=== PATIENT | male | born 1985 | race Caucasian/White ===

== ENCOUNTER 2023-08-22 18:01 | Emergency (ER) | payer OTHER, SELFPAY ==
[2023-08-22 19:07] VITALS: BP 127/93; PULSE 88; RESP 20; TEMP 37.5; O2SAT 99; BMI 29.0
--- NOTE | 2023-08-22 19:09 | ED_ITS ---
HPI - General Adult General Chief complaint: Abdominal Pain Stated complaint: stomach pain N/ V Time Seen by Provider: 08/22/23 23:26 Source: patient Mode of arrival: ambulatory Limitations: no limitations History of Present Illness HPI narrative: 38-year-old male previously healthy presents to the ER with complaints of upper abdominal burning with multiple episodes of nausea and vomiting in the last 3 days. Patient denies any diarrhea, constipation, urinary symptoms, fevers, chills, chest pain, shortness of breath. Patient reports this happened to him 1 week ago he was seen at [facility]. While he was there he had labs and a CT scan. He was told that he has gastric reflux and he was prescribed a medication which he does not remember the name for. He has been taking that with continued symptoms. Patient denies any black or bloody stools. Patient denies any hematemesis. He is also trying intermittent famotidine and tums Had BM today Related Data Previous Rx's Medication Instructions Recorded omeprazole 40 mg capsule,delayed 40 mg PO DAILY #30 caps 08/23/23 release ondansetron 4 mg disintegrating 4 mg PO Q6H PRN nausea and 08/23/23 tablet vomiting #20 tabs Allergies Allergy/AdvReac Type Severity Reaction Status Date / Time aspirin AdvReac Vomiting Verified 08/22/23 19:06 Review of Systems 2 Review of Systems: Yes all other systems are reviewed and are negative Constitutional: Constitutional: Reports no additional constitutional complaints, Denies body ache(s), Denies chills, Denies fever(s), Denies headache(s) and Denies weakness Eyes: Eyes: Reports no additional eye complaints and Denies change in vision ENT: Reports system reviewed and no additional complaints, except as documented, Denies dizziness, Denies headache(s), Denies nasal congestion, Denies nasal discharge and Denies neck pain Cardiovascular: Cardiovascular: Reports no additional cardiovascular complaints, Denies chest pain, Denies leg edema and Denies dyspnea Respiratory: Respiratory: Reports no additional respiratory complaints, Denies cough and Denies dyspnea Gastrointestinal: Gastrointestinal: Reports no additional gastrointestinal complaints, Reports abdominal pain, Denies melena, Denies hematochezia, Denies coffee ground emesis, Denies diarrhea, Reports nausea and Reports vomiting Genitourinary: Genitourinary: Denies urinary incontinence Musculoskeletal: Musculoskeletal: Reports no additional musculoskeletal complaints, Denies back pain, Denies arthralgias, Denies joint swelling, Denies neck pain, Denies numbness and Denies tingling Integumentary/Breasts: Skin/Breast: Reports system reviewed and no additional complaints, except as docu and Denies rash Neurologic: Reports system reviewed and no additional complaints, except as documented, Denies Abnormal speech present, Denies dizziness, Denies headache(s), Denies numbness, Denies tingling and Denies weakness PMF Past Medical History Attestation statement: The following information was validated with the patient. Source: old records reviewed and nursing notes reviewed Social History Social History Alcohol intake: current Smoked in Last 30 Days: Yes Use of substances other than those prescribed or required for medical reasons: No Advance Directives: No Advance Directives Information Provided: Yes Physical Exam ED Vital Signs: Vital Signs - 24 hr 08/22/23 19:07 08/22/23 22:32 08/23/23 00:00 Temperature 99.5 F 98.3 F Pulse Rate 88 80 79 Respiratory Rate 20 20 14 Blood Pressure 127/93 H 148/95 H 116/86 Pulse Oximetry 99 99 99 Oxygen Delivery Method Room Air Room Air Room Air BMI result Body Mass Index 29.0 Const General: cooperative, healthy appearing, comfortable and no acute distress Orientation/consciousness: patient oriented x3 Limitations: no limitations [facility] Head: Yes normal to inspection Ears: hearing grossly normal bilaterally General nose exam: Normal external nose present Face and sinus: Yes normal facial exam Mouth: Normal oral and palatal mucosa present Throat: Yes posterior oropharynx normal Eyes General: appearance normal, both eyes and all related structures Pupils: Equal, round and reactive pupils present Neck Neck: Yes normal visual inspection Chest Chest palpation & inspection: normal inspection of the chest Resp Effort & Inspection: normal respiratory effort Auscultation: clear to auscultation bilaterally Cardio Rate: regular rate Rhythm: regular rhythm Peripheral pulses: Peripheral pulses 2+ throughout GI Inspection: Yes normal to inspection and No distended Palpation (GI): Soft to palpation, Tenderness to palpation present (GI) (mild TTP) in the epigastrum; with no rebound tenderness and no guarding Auscultation: normal bowel sounds Back/Spine/Pelvis Thoracic/Lumbar Spine: thoracic and lumbar spine normal to inspection Skin General skin exam: no rashes or lesions noted Neuro General: patient oriented x3, no focal motor deficits and normal sensation to monofilament Cranial nerves: Yes Equal, round and reactive pupils present Cognition (Neuro): normal cognition Speech: No Abnormal speech present Gait exam (Neuro): Normal gait present Motor exam (neuro): 5/5 motor strength present throughout Extrem General: Yes normal to inspection Course Course Course Narrative: RME: 38 yold male presents to the ED for abdominal pain with acid reflux sensation. labs and EKG ordered. uA Reevaluation(s) Reevaluation #1: Labs are unremarkable. UA shows no findings. Patient had a CT of the abdomen and pelvis 2 weeks ago tooth unremarkable. His abdomen is soft nontender. He is nontoxic appearing, tolerating p.o.. I do not feel that he needs additional imaging. Will initiate PPI, Zofran p.r.n. with recommendations to follow-up with primary care. Reviewed worrisome signs and symptoms of when to return to the emergency room. Comfortable plan for discharge home. Medications Administered Discontinued Medications Generic Name Dose Route Start Last Admin Trade Name Sergio PRN Reason Stop Dose Admin Al Hydroxide/Mg Hydroxide 30 ml 08/22/23 23:58 08/23/23 00:06 Magnesium Hydrox/Alum Hydrox 30 Ml Oral.Susp PO 08/22/23 23:59 30 ml ONCE ONE Administration Lidocaine HCl 15 ml 08/22/23 23:58 08/23/23 00:06 Lidocaine Hcl Viscous 2 % 15 Ml Solution MUCOUS MEM 08/22/23 23:59 15 ml ONCE ONE Administration Omeprazole 40 mg 08/23/23 00:57 08/23/23 01:07 Omeprazole 40 Mg Capsule.Dr PO 08/23/23 00:58 40 mg ONCE ONE Administration Ondansetron HCl 4 mg 08/22/23 23:58 08/23/23 00:06 Ondansetron Odt 4 Mg Tab.Tita TRANSLINGU 08/22/23 23:59 4 mg ONCE ONE Administration Medical Decision Making Medical Decision Making [facility] Narrative: 38-year-old male previously healthy presents to the ER with complaints of upper abdominal burning with multiple episodes of nausea and vomiting in the last 3 days. Patient denies any diarrhea, constipation, urinary symptoms, fevers, chills, chest pain, shortness of breath. Patient reports this happened to him 1 week ago he was seen at [facility]. While he was there he had labs and a CT scan. He was told that he has gastric reflux and he was prescribed a medication which he does not remember the name for. He has been taking that with continued symptoms. Patient denies any black or bloody stools. Patient denies any hematemesis. He is also trying intermittent famotidine and tums Mild tenderness the epigastrium with no rebound or guarding. Patient does not appear dehydrated Will review labs, UA from triage Will obtain records from [facility] Will give [facility] GI cocktail Differential Diagnosis Differential Diagnoses: The differential diagnosis associated with the presentation includes Gastritis, gastroenteritis, GERD Low concern for acute appendicitis, cholecystitis, cholelithiasis, pancreatitis, SBO with no focal abdominal pain, no rebound/guarding Admission/Observation Consideration of admission/observation: Escalation of care including admission/observation considered Patient tolerating p.o. with no additional vomiting, no need for advanced imaging, IV fluids or admission. Lab Data MDM Lab Attestation statement: I reviewed the patient's lab results. 08/22/23 21:30 08/22/23 21:30 Labs: Lab Results 08/22/23 08/22/23 Range/Units 21:30 21:41 WBC 12.1 H (4.8-10.8) X10*3/uL RBC 5.17 (4.60-5.80) X10*6/uL Hgb 15.0 (14.0-18.0) g/dl Hct 44.5 (42.0-52.0) % MCV 86.1 (80.0-98.0) fL MCH 29.0 (27.0-33.0) pg MCHC 33.7 (31.0-36.0) g/dl RDW 11.9 (11.0-16.0) % Plt Count 263 (160-400) X10*3/uL MPV 11.2 (9.4-12.4) fL Immature Gran % (Auto) 0.4 (0.0-0.4) % Neut % (Auto) 68.6 (45-73) % Lymph % (Auto) 22.8 (20-40) % [place] % (Auto) 6.9 (2-11) % Eos % (Auto) 1.0 (0-4) % Baso % (Auto) 0.3 (0-2) % Lymph # (Auto) 2.8 (1.2-4.9) X10*3/uL [place] # (Auto) 0.8 (0.1-1.2) X10*3/uL Eos # (Auto) 0.1 (0.0-0.4) X10*3/uL Baso # (Auto) 0.0 (0.0-0.2) X10*3/uL Abs Immat Gran (auto) 0.05 H (0.00-0.03) X10*3/uL Absolute Neuts (auto) 8.3 (2.0-8.3) x10*3/uL Absolute Nucleated RBC 0.000 (0.0-0.012) X10*3/uL Nucleated RBC % (auto) 0.0 (0.0-0.2) /100WBC PT 12.4 (11.1-13.3) SEC INR 1.0 (0.9-1.1) APTT 27.0 (26.0-36.4) SEC Sodium 138 (135-145) mmol/L Potassium 4.0 (3.3-5.1) mmol/L Chloride 101 (96-108) mmol/L Carbon Dioxide 26 (22-29) mmol/L Anion Gap 15 (12-20) BUN 16 (9-16) mg/dL Creatinine 0.87 (0.5-1.4) mg/dL Estim Creat Clear Calc 113.2 Estimated GFR > 60 Random Glucose 117 H (60-115) mg/dL Calcium 10.2 (8.4-10.2) mg/dL Total Bilirubin 0.6 (0.0-1.0) mg/dL AST 21 (5-37) U/L ALT 37 (0-40) U/L Alkaline Phosphatase 70 (39-117) U/L Troponin I High Sens 23.9 (<3.5-35.0) ng/L Total Protein 8.6 H (6.5-8.0) g/dL Albumin 5.0 (3.5-5.0) g/dL Lipase 46 (8-78) U/L Urine Color Dark Yellow Urine Appearance Clear Urine pH 6.0 (5.0-9.0) Ur Specific [place] >= 1.030 H (1.005-1.025) Urine Protein 30 (1+) H (Neg-Trace) mg/dL Urine Glucose (UA) Negative (Negative) mg/dL Urine Ketones 15 (Negative) mg/dL Urine Blood Negative (Negative) Urine Nitrite Negative (Negative) Ur Leukocyte Esterase Trace H (Negative) Urine RBC 0-2 (0-2) /HPF Urine WBC 0-5 (0-5) /HPF Ur Squamous Epith Cells 0-2 (0-2) /HPF Urine Bacteria None Seen (None Seen) Hyaline Casts 11-20 (0-2) /LPF Independent Interpretation I performed an independent interpretation of an: EKG Interpretation: I independently reviewed the EKG which shows normal sinus rhythm with a rate of 71, normal ND, normal QRS normal QT Independent Historian Clinical information obtained from an independent historian. History obtained from or confirmed by: Spouse External Record Review External record reviewed: Outside ED record Reviewed CT abdomen and pelvis from August 06 from [facility] which shows no acute finding Tests considered The following testing was considered but not selected: No focal abdominal pain, recent CT imaging Discharge Plan Discharge Clinical Impression: Abdominal pain Patient Disposition: Home, Self-Care Instructions: Gastroesophageal Reflux Disease (ED), Abdominal Pain (ED) Additional Instructions: Please establish a primary care doctors that you may follow-up with them. You may need to see a enrollment counselor. Please eat a bland diet. Avoid coffee, tobacco smoking, spicy or greasy foods. After eating please do not lay down for at least 1 hour. Do not eat before going to bed. Por favor establezca un m?dico de atenci?n primaria al que pueda hacer seguimiento con ellos. Es posible que necesite consultar a un gastroenter?logo. Por favor, lleve magalis dieta blanda. Evite el caf?, el tabaco y las comidas picantes o grasosas. Despu?s de comer, no se recueste reji al menos 1 hora. No comer antes de acostarse. Prescriptions: New omeprazole 40 mg capsule,delayed release(DR/EC) 40 mg PO DAILY Qty: 30 0RF ondansetron 4 mg tablet,disintegrating 4 mg PO Q6H PRN (Reason: nausea and vomiting) Qty: 20 0RF Referrals: Physician,None [Primary Care Provider] - 10 days Interventions: ED Discharge Assessment Last Done: 08/23/23 01:35 Discharge Date/Time: 08/23/23 01:35
--- NOTE | 2023-08-22 19:10 | ECG_ITS ---
Test Reason : ABD PAIN Blood Pressure : / mmHG Vent. Rate : 071 BPM Atrial Rate : 071 BPM P-R Int : 158 ms QRS Dur : 084 ms QT Int : 376 ms P-R-T Axes : 031 -13 038 degrees QTc Int : 408 ms Normal sinus rhythm with sinus arrhythmia Normal ECG No previous ECGs available Referred By: Ted Warren Electronically Signed By:TRINA CALLE MD
[2023-08-22 21:42] LABS: MANUAL DIFF FLAG NO
[2023-08-22 21:44] LABS: Basophils Percent Auto 0.3 % (0-2); Eosinophils Absolute Auto 0.1 X10*3/uL (0.0-0.4); Hematocrit 44.5 % (42.0-52.0); Imm Gran Abs Auto 0.05 X10*3/uL (0.00-0.03); Imm Gran Pct Auto 0.4 % (0.0-0.4); Lymphocytes Absolute Auto 2.8 X10*3/uL (1.2-4.9); Lymphocytes Percent Auto 22.8 % (20-40); Mean Corpuscular HGB Conc 33.7 g/dl (31.0-36.0); Mean Corpuscular Volume 86.1 fL (80.0-98.0); Mean Platelet Volume 11.2 fL (9.4-12.4); Monocytes Absolute Auto 0.8 X10*3/uL (0.1-1.2); Monocytes Percent Auto 6.9 % (2-11); Neutrophils Absolute Auto 8.3 x10*3/uL (2.0-8.3); Neutrophils Percent Auto 68.6 % (45-73); Platelet Count 263 X10*3/uL (160-400); Red Blood Count 5.17 X10*6/uL (4.60-5.80); Red Cell Distribution Width 11.9 % (11.0-16.0); White Blood Count 12.1 X10*3/uL (4.8-10.8)
[2023-08-22 21:47] LABS: Appearance Urine Clear; Color Urine Dark Yellow; Glucose Urine UA Negative (Negative); Leukocyte Esterase Urine Trace (Negative); Nitrite Urine Negative (Negative); Specific Gravity - Urine >= 1.030 (1.005-1.025); UMIC TRIGGER UACC YES; Urine Blood Negative (Negative); Urine Ketones 15 mg/dL (Negative); Urine Protein 30 (1+) mg/dL (Neg-Trace)
[2023-08-22 21:56] LABS: Prothrombin Time 12.4 SEC (11.1-13.3)
[2023-08-22 21:57] LABS: RBC Urine 0-2 /HPF (0-2); WBC Urine 0-5 /HPF (0-5)
[2023-08-22 21:58] LABS: Bacteria Urine None Seen (None Seen); Squamous Epithelial Cell Urine 0-2 /HPF (0-2)
[2023-08-22 22:32] VITALS: BP 148/95; PULSE 80; RESP 20; O2SAT 99
[2023-08-22 23:25] LABS: Alanine Aminotransferase 37 U/L (0-40); Alkaline Phosphatase 70 U/L (39-117); Anion Gap 15 (12-20); Aspartate Amino Transferase 21 U/L (5-37); Bilirubin Total 0.6 mg/dL (0.0-1.0); Blood Urea Nitrogen 16 mg/dL (9-16); Calcium 10.2 mg/dL (8.4-10.2); Carbon Dioxide 26 mmol/L (22-29); Chloride 101 mmol/L (96-108); Creatinine Clr Calc Pharmacy 113.2; Estimated Glomerular Filt Rate > 60; Glucose Random 117 mg/dL (60-115); Lipase 46 U/L (8-78); Sodium 138 mmol/L (135-145); Total Protein 8.6 g/dL (6.5-8.0); Troponin-I High Sensitivity 23.9 ng/L (<3.5-35.0)
[2023-08-23] VITALS: BP 116/86; PULSE 79; RESP 14; TEMP 36.8; O2SAT 99
[2023-08-23] MEDS: Lidocaine HCl Viscous 2 % 15 ML SOLUTION MUCOUS MEM (00:06)
[2023-08-23] MEDS: Ondansetron ODT 4 MG TAB.RAPDIS TRANSLINGU (00:06)
[2023-08-23] MEDS: Magnesium Hydrox/Alum Hydrox 30 ML ORAL.SUSP PO (00:06)
--- OUTSIDE RECORDS SUMMARY | 2023-08-23 00:07 | XMS_ITS | Continuity of Care Document ---
Author Name Unknown Organization [facility] Address [address] [place] [address]- Care Team Providers Care Advocacy Director Name Role Phone Not on Staff, PCP Primary Care Physician Unavail able [place] [facility] [place] - 12/23/22 [facility] [address]- Attending Physician: Guy Lovell Admitting Physician: Guy Lovell Referring Physician: AdmtrGuy Allergies, Adverse Reactions, Alerts Substance Reaction Severity Status aspirin vomiting Active Immunizations Given and Recorded Vaccine Date Status Refusal Reason SARS-CoV-2 (COVID-19) mRNA BNT-162b2 vac 1 03/05/21 Given SARS-CoV-2 (COVID-19) mRNA BNT-162b2 vac 2 02/12/21 Given influenza virus vaccine, inactivated 3 07/20/09 Gi andreia 1Result Comment: Betina Chatterjee 2Result Comment: Betina Chatterjee 3Admin Note: ADM BY RN Medications Claritin Tablet 10 mg, By Mouth, Daily, Maintenance, 12/08/14 18:15:08 Start Date: 12/08/14 Status: Ordered Problem List Condition Confirmation Course Effective Dates Status Health St atus Informant Alcohol abuse Confirmed Active Liver enzymes abnormal Confirmed Active Obesity Confirmed Active Social History Social History Type Response Smoking Status Former smoker entered on: 12/08/14 Sex Patient Care team information Care Team Personnel Name: Not on Staff, PCP Position: S Physician (General Medicine) Member Role: PCP Care Team Related Persons Name: CAROL FROST Address: home [address] [place] [address]
--- OUTSIDE RECORDS SUMMARY | 2023-08-23 00:07 | XMS_ITS | Continuity of Care Document ---
Author Name Unknown Organization [facility] Address [address] [place] [id number]- Care Team Providers Care Gas Station Clerk Name Role Phone Not on Staff, PCP Primary Care Physician Unavail able Encounter [facility] Date(s): 09/06/22 - 09/06/[address] [address]- Discharge Disposition: A-D/C Walkout Attending Physician: Not on Staff, Attending MD Admitting Physician: Not on Staff, Admitting MD Referring Physician: Not on Staff, Referring MD Allergies, Adverse Reactions, Alerts Substance Reaction Severity [...] enzymes abnormal Confirmed Active Obesity Confirmed Active Vital Signs Most recent to oldest [Reference Range]: 1 2 Oxygen Saturation [94-100 %] 100 % (09/06/22 5:31 PM) 100 % (09/06/22 5:27 PM) Pulse Rate [55-90 bpm] 75 bpm (09/06/22 5:31 PM) 84 bpm (09/06/22 5:27 PM) Blood Pressure [90-138/55-84 mm Hg] 148/ 87mm Hg *H* (09/06/22 5:31 PM) Respiratory Rate [16-30 br/min] 19 br/mi n (09/06/22 5:31 PM) 19 br/min (09/06/22 5:27 PM) Temperature [96.8-100.4 DegF] 98.3 DegF (09/06/22 5:31 PM) Mode of Delivery (Oxygen) Room air (09/06/22 5:31 PM) Room air (09/06/22 5:27 PM) Blood pressure sites Arm, right (09/06/22 5:31 PM) Temperature Route Oral (09/06/22 5:31 PM) Social History Social History Type Response Smoking Status Former smoker entered on: 12/08/14 Sex Patient Care team information Care Team Personnel Name: Not on Staff, PCP Position: S Physician (General Medicine) Member Role: PCP Care Team Related Persons Name: CAROL FROST Address: [address] [address]
[2023-08-23] MEDS: Omeprazole 40 MG CAPSULE.DR PO (01:07)
== END 2023-08-23 01:35 | disposition home or self-care (01) ==
PROVIDERS: Physician Assistant; Emergency Provider Internal Medicine
DX: R10.10 Upper abdominal pain, unspecified (principal); R11.2 Nausea with vomiting, unspecified; I49.9 Cardiac arrhythmia, unspecified; Z79.899 Other long term (current) drug therapy
CPT/HCPCS: 36415; 80053; 81001; 83690; 84484; 85025; 85610; 85730; 93005; 99284; 99285